=== PATIENT | female | born 1995 | race African-American/Black ===

== ENCOUNTER 2025-02-09 19:12 | Day surgery (SDC) | payer OTHER ==
[2025-02-09] MEDS ORDERED: hydrALAZINE 20 MG/ML VIAL SLOW IVP PRN (19:17)
[2025-02-09 19:38] VITALS: BMI 37.5
[2025-02-09 20:49] LABS: Glucose, Urine (Dipstick) Normal (Negative); Leukocyte Negative (Negative); Protein, Urine (Dipstick) 15 mg/dl (Neg-Trace); Specific Gravity, Urine 1.005 (1.005-1.030)
[2025-02-09 20:59] LABS: Bacteria/HPF 1+ HPF (None Seen); CAUTI Indications for Culture Pregnancy; RBC/HPF None Seen HPF (0-3); WBC/HPF 0-3 HPF (0-3)
[2025-02-09 21:00] LABS: Urine Culture Reflex Yes Yes
[2025-02-09] MEDS ORDERED: Acetaminophen 500 MG TAB PO SCH (22:00)
== END 2025-02-09 22:29 | disposition home or self-care (01) ==
LOC: CSHLD/OP 19:12
PROVIDERS: ATTEND Family Medicine
DX: O47.03 False labor before 37 completed weeks of gestation, third trimester (principal); O98.513 Other viral diseases complicating pregnancy, third trimester; B00.9 Herpesviral infection, unspecified; O99.213 Obesity complicating pregnancy, third trimester; O23.593 Infection of other part of genital tract in pregnancy, third trimester; B96.89 Other specified bacterial agents as the cause of diseases classified elsewhere; Z3A.32 32 weeks gestation of pregnancy; Z67.10 Type A blood, Rh positive; Z88.2 Allergy status to sulfonamides; Z79.899 Other long term (current) drug therapy
CPT/HCPCS: 76817; 81001; 87086; 87480; 87510; 87660; 99285

== ENCOUNTER 2025-02-24 10:57 | Day surgery (SDC) | payer OTHER ==
[2025-02-24 11:20] VITALS: BMI 36.6
[2025-02-24] MEDS ORDERED: hydrALAZINE 20 MG/ML VIAL SLOW IVP PRN (11:27)
== END 2025-02-24 13:48 | disposition home or self-care (01) ==
LOC: CSHLD/OP 10:57
PROVIDERS: ATTEND Family Medicine
DX: O36.8130 Decreased fetal movements, third trimester, not applicable or unspecified (principal); O98.513 Other viral diseases complicating pregnancy, third trimester; B00.9 Herpesviral infection, unspecified; Z3A.34 34 weeks gestation of pregnancy; Z67.10 Type A blood, Rh positive; Z88.2 Allergy status to sulfonamides
CPT/HCPCS: 76819; 99283

== ENCOUNTER 2025-03-31 15:01 | Day surgery (SDC) | payer OTHER ==
[2025-03-31] MEDS ORDERED: hydrALAZINE 20 MG/ML VIAL SLOW IVP PRN (16:06)
[2025-03-31 16:13] LABS: Fetal Membranes Rupture No Membranes Rupture (No Rupture)
== END 2025-03-31 17:20 | disposition home or self-care (01) ==
LOC: CSHLD/OP 15:01
PROVIDERS: ATTEND Family Medicine
DX: Z03.71 Encounter for suspected problem with amniotic cavity and membrane ruled out (principal); Z3A.39 39 weeks gestation of pregnancy; Z88.2 Allergy status to sulfonamides
CPT/HCPCS: 84112; 99284

== ENCOUNTER 2025-04-07 23:57 | Inpatient (IN) | payer OTHER ==
[2025-03-31 14:17] VITALS: BMI 38.2
[~2025-04-07 23:57] MED LIST: Acetaminophen 500 MG TAB PO PRN; Carboprost 250 MCG/ML AMP IM PRN; Diphenoxylate HCl/Atropine Tablet PO PRN; Ibuprofen 800 MG TAB PO PRN; Lidocaine 1% (PF) 30 ML VIAL SC PRN; Methylergonovine 0.2 MG/ML VIAL IM PRN; Ondansetron PF 4 MG/2 ML Vial IVP PRN; Oxytocin 30 units/NS 500 ML 500 ML IV SCH; Tranexamic Acid 1,000 MG/10 ML VIAL IVP PRN; hydrALAZINE 20 MG/ML VIAL SLOW IVP PRN
[2025-04-07] MEDS ORDERED: Oxytocin 30 units/NS 500 ML 500 ML IV SCH (23:59)
[2025-04-08 00:48] LABS: Hematocrit 39.1 % (34.9-44.5); Hemoglobin 12.9 g/dL (12.0-15.5); Mean Corpuscular Hemoglobin 28.6 pg (27.0-33.0); Mean Corpuscular Volume 86.7 fL (81.6-98.3); Platelet Count 267 10x3/uL (150-450); Red Blood Cell (RBC) Count 4.51 10x6/uL (3.90-5.03); White Blood Cell (WBC) Count 7.95 10x3/uL (3.5-10.5)
[2025-04-08 01:19] LABS: Hep B Surf Ag - L&D Non-Reactive S/CO (NonReactive)
[2025-04-08 01:21] LABS: Syphilis Antibody Index 0.09 S/CO (<1.00 Non-Reactive)
[2025-04-08] MEDS ORDERED: diphenhydrAMINE 50 MG/ML VIAL IVP PRN ×2 (07:59→13:59)
[2025-04-08] MEDS ORDERED: Ondansetron PF 4 MG/2 ML Vial IVP PRN ×3 (07:59→13:59)
[2025-04-08] MEDS ORDERED: Communication Order-Pharmacy FS SCH ×2 (08:00→14:00)
[2025-04-08] MEDS ORDERED: fentaNYL 2 mcg/Ropivacaine 0.2% Epidural 100 ML CADD EPIDURAL SCH (08:00)
[2025-04-08] MEDS: fentaNYL/Ropivacaine Epidural 100 ML ONE (08:13)
[2025-04-08] MEDS ORDERED: Famotidine/PF 20 mg/2ml Vial SLOW IVP PRN (09:01)
[2025-04-08] MEDS ORDERED: Bicitra 30 ML UDCUP PO PRN (09:01)
[2025-04-08] MEDS ORDERED: Azithromycin 500 MG in Sodium Chloride 0.9% 250 ML 250 ML IVPB SCH (09:45)
[2025-04-08 13:03] LABS: Analyzer IN Cardio CS ER; Critical Notified By: clumpkins rt; pH (Cord, venous) 7.356 (7.250-7.350)
[2025-04-08 13:56] LABS: Platelet Count 221.0 10x3/uL (150-450)
[2025-04-08] MEDS: Azithromycin 500 MG VIAL ONE (13:59)
[2025-04-08] MEDS ORDERED: HYDROmorphone 0.5 MG/0.5 ML SYRINGE SLOW IVP PRN (13:59)
[2025-04-08] MEDS ORDERED: Meperidine HCl/PF 25 MG (1 mL) VIAL SLOW IVP PRN (13:59)
[2025-04-08] MEDS: Oxytocin 10 UNITS/ML VIAL ONE ×2 (14:00)
[2025-04-08] MEDS: PHENYLEPHRINE-NS 100 MCG/ML 10 ML SYRINGE ONE (14:00)
[2025-04-08] MEDS ORDERED: Ketorolac Tromethamine 30 MG (1 mL) VIAL IVP SCH (14:00)
[2025-04-08] MEDS: CEFAZOLIN 2 GM VIAL ONE (14:00)
[2025-04-08] MEDS: Tranexamic Acid 1,000 MG/10 ML VIAL ONE (14:01)
[2025-04-08 14:14] LABS: D-Dimer Test 2.21 mcg/mL (0.19-0.50); Fibrinogen 361.0 mg/dL (220-504); INR-International Normal Ratio 0.9; PTT 23.6 sec (22.0-33.0); Prothrombin Time 10.3 sec (9.5-12.1)
[2025-04-08] MEDS ORDERED: Lanolin Ointment 7 GM TUBE TOP PRN (16:41)
[2025-04-08] MEDS ORDERED: Oxytocin 30 units/NS 500 ML 500 ML IV SCH (16:41)
[2025-04-08] MEDS ORDERED: hydrALAZINE 20 MG/ML VIAL SLOW IVP PRN (16:41)
[2025-04-08] MEDS ORDERED: Bisacodyl 10 MG SUPP PR PRN (16:41)
[2025-04-08] MEDS ORDERED: Methylergonovine 0.2 MG/ML VIAL IM PRN (16:41)
[2025-04-08] MEDS: Ketorolac Tromethamine 30 MG (1 mL) VIAL IVP PRN (17:14)
[2025-04-08] MEDS ORDERED: Lidocaine 2% MPF 10 ML AMP (For Epidural Use) ONE (18:07)
[2025-04-08] MEDS ORDERED: Bupivacaine HCl 0.5%/Epinephrine 1:200,000/PF 30 ml Vial ONE (18:07)
[2025-04-08] MEDS ORDERED: Bupivacaine 0.25% HCL 30 ML VIAL ONE (18:07)
[2025-04-08 21:12] LABS: Hematocrit 29.9 % (34.9-44.5); Hemoglobin 10.0 g/dL (12.0-15.5)
[2025-04-08] MEDS: Ferrous Sulfate 325 MG TAB PO SCH (21:21)
[2025-04-09] MEDS: Acetaminophen 325 MG TAB PO PRN (01:16)
[2025-04-09] MEDS: HYDROcodone/Acetaminophen 5/325 mg Tablet PO PRN (04:50)
[2025-04-09 06:36] LABS: Hematocrit 29.6 % (34.9-44.5); Hemoglobin 9.8 g/dL (12.0-15.5); Mean Corpuscular Hemoglobin 29.0 pg (27.0-33.0); Mean Corpuscular Volume 87.6 fL (81.6-98.3); Platelet Count 181 10x3/uL (150-450); Red Blood Cell (RBC) Count 3.38 10x6/uL (3.90-5.03); White Blood Cell (WBC) Count 8.04 10x3/uL (3.5-10.5)
[2025-04-09] MEDS: Ibuprofen 800 MG TAB PO SCH (22:32)
[2025-04-10 04:30] VITALS: BP 122/67; TEMP 98.2
[2025-04-10] MEDS: Simethicone Chewable 80 MG TAB PO PRN (08:46)
[2025-04-10] MEDS: Senokot S 8.6-50 MG TAB PO SCH (13:47)
== END 2025-04-10 16:00 | disposition home or self-care (01) | DRG 787 ==
LOC: CSHLD 23:57 → CSHPP 04-08 16:40
PROVIDERS: ADMIT Family Medicine; ATTEND Family Medicine
PROC: 10D00Z1 Extraction of Products of Conception, Low, Open Approach (ICD-10-PCS; principal; 2025-04-08)
PROC: 10907ZC Drainage of Amniotic Fluid, Therapeutic from Products of Conception, Via Natural or Artificial Opening (ICD-10-PCS; 2025-04-08)
PROC: 10H07YZ Insertion of Other Device into Products of Conception, Via Natural or Artificial Opening (ICD-10-PCS; 2025-04-08)
PROC: 4A1HXCZ Monitoring of Products of Conception, Cardiac Rate, External Approach (ICD-10-PCS; 2025-04-08)
PROC: 30233N1 Transfusion of Nonautologous Red Blood Cells into Peripheral Vein, Percutaneous Approach (ICD-10-PCS; 2025-04-08)
PROC: 3E03329 Introduction of Other Anti-infective into Peripheral Vein, Percutaneous Approach (ICD-10-PCS; 2025-04-08)
DX: O48.0 Post-term pregnancy (principal); O72.1 Other immediate postpartum hemorrhage; O98.52 Other viral diseases complicating childbirth; O99.214 Obesity complicating childbirth; O69.82X0 Labor and delivery complicated by other cord entanglement, without compression, not applicable or unspecified; O34.43 Maternal care for other abnormalities of cervix, third trimester; E66.812 Obesity, class 2; O76 Abnormality in fetal heart rate and rhythm complicating labor and delivery; B00.9 Herpesviral infection, unspecified; Z88.8 Allergy status to other drugs, medicaments and biological substances; Z88.2 Allergy status to sulfonamides; Z37.0 Single live birth; Z3A.40 40 weeks gestation of pregnancy; Z79.899 Other long term (current) drug therapy
CPT/HCPCS: 36415; 36430; 51702; 82805; 85027; 85049; 85300; 85362; 85384; 85610; 85730; 86780; 86850; 86900; 86901; 87340; J0665; J1885; J2274; J2550; J2590; J3105; J7120; P9040

== ENCOUNTER 2025-04-30 14:57 | Emergency (ER) | payer OTHER | END 2025-04-30 19:12 | disposition home or self-care (01) | LOC: CSHERS 14:57 | DX: O90.0 Disruption of cesarean delivery wound (principal); O86.00 Infection of obstetric surgical wound, unspecified | CPT/HCPCS: 99283 ==